=== PATIENT | male | born 2000 | race Caucasian/White ===

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

== ENCOUNTER 2023-05-09 01:17 | Emergency (ER) | payer BC ==
[~2023-05-09] VITALS: Ht 182.9 cm; Wt 96.0 kg
[2023-05-09 01:25] VITALS: BP 168/100
--- NOTE | 2023-05-09 01:33 | ED Respiratory ---
General Stated Complaint: SOA/LIGHTHEADED Source: patient Exam Limitations: no limitations History of Present Illness Date Seen by Provider: May 09, 2023 Time Seen by Provider: 01:21 Initial Comments 22-year-old male with no pertinent past medical history coming in due to 2 days of feeling short of breath like it is hard to take a deep breath, particularly he feels like it is hard to take a deep breath on the "left side". He has felt lightheaded, particularly when he lays backwards. This is never happened before. Denies any chest pain, fever, chills, nausea, vomiting, diarrhea, weakness, numbness, or any other concerns. No lower extremity swelling or pain, no recent long travel, no recent surgery, no prior history of DVT or PE, no hemoptysis, does not take any hormones or any other medications. Also no family history of blood clots. Allergies and Home Medications Allergies Coded Allergies: No Known Drug Allergies (Unverified , 05/09/23) Patient Home Medication List Home Medication List Reviewed: Yes Review of Systems Review of Systems Constitutional: No fever EENTM: no symptoms reported Respiratory: see HPI Cardiovascular: no symptoms reported Gastrointestinal: no symptoms reported Genitourinary: no symptoms reported Musculoskeletal: no symptoms reported Skin: no symptoms reported Psychiatric/Neurological: No Symptoms Reported Hematologic/Lymphatic: No Symptoms Reported Past Bstfnfw-Jcoxeg-Mbxksm Hx Patient Social History Tobacco Use?: No Substance use?: No Alcohol Use?: No Past Medical History Surgeries: No Physical Exam Capillary Refill : Height: '" Weight: lbs. oz. kg; BMI Method: General Appearance: WD/WN, no apparent distress Eyes: Bilateral Eye Normal Inspection HEENT: PERRL/EOMI, normal ENT inspection, pharynx normal Neck: non-tender, full range of motion, supple, normal inspection Respiratory: chest non-tender, lungs clear, normal breath sounds, no respiratory distress, no accessory muscle use Cardiovascular: regular rate, rhythm, no edema, no murmur Gastrointestinal: normal bowel sounds, non tender, soft; No distended, No guarding, No rebound Extremities: normal range of motion, non-tender, normal inspection, no pedal edema, no calf tenderness, normal capillary refill Neurologic/Psychiatric: no motor/sensory deficits, alert, normal mood/affect Skin: normal color, warm/dry Progress/Results/Core Measures Suspected Sepsis SIRS Temperature: Pulse: Respiratory Rate: Blood Pressure / Mean: Results/Orders My Orders Orders - ABEL CAMPA MD Chest Pa/Lat (2 View) (05/09/23 01:27) Ekg Tracing (05/09/23 01:27) Lorazepam Tablet (Ativan Tablet) (05/09/23 01:34) Albuterol Hfa Inhaler (Albuterol Hfa Inh (05/09/23 01:34) Vital Signs/I&O Capillary Refill : Progress Note : Progress Note 22-year-old male with above history coming in due to difficulty breathing. ABCs were intact and vitals were stable on presentation. Physical exam reassuring including normal lung sounds bilaterally and he is not in respiratory distress. EKG ordered and interpreted by me showing normal sinus rhythm with no acute ischemic changes. Chest x-ray ordered and interpreted by me showing no pneumothorax, normal cardiac silhouette, no opacities otherwise. I did a [id number] ultrasound showing normal ejection fraction, no pericardial effusion, normal lung sliding which once again confirms no pneumothorax. He was given albuterol as a trial, and he states this did help somewhat. 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 We will send a prescription for albuterol since he feels like it is helping. He is otherwise low risk for PE per Nelson criteria and is PERC negative. PE sufficiently ruled out. I believe he is otherwise stable for discharge with outpatient follow-up as he does not seem to have any life-threatening causes of his dyspnea at this time. He was sent home with strict return precautions. ECG Initial ECG Impression Date: May 09, 2023 Initial ECG Impression Time: : Initial ECG Rate: 87 Initial ECG Rhythm: Normal Sinus Comment narrow QRS, normal axis, no significant ST changes or T wave abnormalities Diagnostic Imaging Diagonstic Imaging: Xray (chest) Departure Impression Primary Impression: Dyspnea Qualified Codes: R06.01 - Orthopnea Disposition: HOME, SELF-CARE Condition: Stable Departure-Patient Inst. Decision time for Depature: 02:05 Referrals: NO,LOCAL PHYSICIAN (PCP/Family) Primary Care Physician Patient Instructions: Shortness of Breath, Adult ED Add. Discharge Instructions: Fortunately we are not seeing any life-threatening causes of your shortness of breath tonight. Since the albuterol did help, this could be something on the spectrum of asthma. We will send a refill to the [facility] pharmacy. Take 2 puffs every 4 hours or so as needed if you feel like this is helping. If he is as often, it can make you feel jittery and anxious medicines that are in it. Please be sure to follow-up with her regular doctor here in town so they can manage this if this becomes more of an issue long-term. Scripts Albuterol Sulfate (Ventolin Hfa) 90 Mcg Hfa.aer.ad 2 PUFF INH Q4H PRN for SHORTNESS OF BREATH for 30 Days, #1 UNIT 1 Refill 1 PUFF = 90 MCG Prov: ABEL CAMPA MD 05/09/23 ABEL CAMPA MD May 09, 2023 01:33
[2023-05-09] MEDS ORDERED: LORazepam 0.5 MG (ATIVAN) TABLET PO STA (01:34)
[2023-05-09] MEDS ORDERED: RT-ALBUTEROL HFA 8.5 GM INHALER IH STA (01:34)
[2023-05-09] MEDS ORDERED: ALBU8.5H6 INH (02:06)
--- NOTE | 2023-05-09 07:21 | Diagnostic Imaging Report ---
EXAMINATION: CHEST (PA AND LATERAL) CLINICAL INDICATION: 22-year-old male, shortness of breath. COMPARISON: None. FINDINGS: Heart size and mediastinal contours are unremarkable. There is no identified pneumothorax. There is no pleural effusion. There is no identified focal airspace consolidation. IMPRESSION: 1. No identified acute cardiopulmonary abnormality. Dictated by: Dictated on workstation # [id number]
== END 2023-05-09 02:13 | disposition home or self-care (01) ==
LOC: EDUNIT# 01:17 → ER 01:20
DX: R06.02 Shortness of breath (principal)
CPT/HCPCS: 71046; 93005